=== PATIENT | female | born 1980 | race Caucasian/White ===

== ENCOUNTER 2017-02-11 16:01 | Emergency (ER) | payer BC ==
[2017-02-11 16:19] VITALS: BP 153/90
--- NOTE | 2017-02-11 16:43 | ED ---
Respiratory - History of Current Complaint Chief Complaint: UCRespiratory Stated Complaint: DIZZINESSM CHEST TIGHTNESS Time Seen by Provider: 02/11/17 16:19 - Allergy/Home Medications Allergies/Adverse Reactions: Allergies Allergy/AdvReac Type Severity Reaction Status Date / Time Ciprofloxacin [From Cipro] Allergy Intermediate Rash Verified 02/11/17 16:19 Doxycycline Allergy Mild Rash Verified 02/11/17 16:19 Home Medications: Home Medications Bupropion XL (NF) [Wellbutrin XL (NF)] 300 mg PO DAILY 02/11/17 [History Confirmed 02/11/17] PMH/Surg Hx/FS Hx/Imm Hx Endocrine/Hematology History: Denies: Hx Diabetes, Hx Thyroid Disease Cardiovascular History: Denies: Hx Congestive Heart Failure, Hx Deep Vein Thrombosis, Hx Hypertension , Hx Myocardial Infarction, Hx Pacemaker/ICD Respiratory History: Denies: Hx Asthma, Hx Chronic Obstructive Pulmonary Disease (COPD), Hx Lung Cancer, Hx Pneumonia, Hx Pulmonary Embolism GI History: Denies: Hx Gall Bladder Disease, Hx Gastrointestinal Bleed, Hx Ulcer, Hx Urosepsis History: Denies: Hx Kidney Stones, Hx Renal Disease Neurological History: Denies: Hx Dementia, Hx Migraine, Hx Seizures, Hx Transient Ischemic Attacks (TIA) Psychiatric History: Denies: Hx Anxiety, Hx Depression, Hx Schizophrenia, Hx Bipolar Disorder - Surgical History Surgery Procedure, Year, and Place: WISDOM TEETH Infectious Disease History: No Infectious Disease History: Denies: Hx Clostridium Difficile, Hx Hepatitis, Hx Human Immunodeficiency Virus (HIV), Hx Shingles, Hx Tuberculosis, Hx Known/Suspected VRE, Hx Known/ Suspected VRSA, History Other Infectious Disease, Traveled Outside the [place] in Last 30 Days - Family History Known Family History: Positive: Cardiac Disease, Hypertension, Diabetes - Social History Alcohol Use: Occasionally Substance Use Type: Reports: None Smoking Status (MU): Never Smoked Tobacco Review of Systems Constitutional: Other - DIZZINESS Eyes: Negative ENT: Negative Positive: Chest Pain Respiratory: Negative Genitourinary: Negative Musculoskeletal: Negative Skin: Negative Neurological: Negative Positive: Anxious All Other Systems Reviewed And Are Negative: Yes Physical Exam Vital Signs On Initial Exam: Initial Vitals Pulse Resp BP Pulse Ox 66 20 153/90 100 02/11/17 16:14 02/11/17 16:14 02/11/17 16:14 02/11/17 16:14 Diagnostics - Vital Signs Vital Signs Pulse Resp BP Pulse Ox 02/11/17 16:14 66 20 153/90 100 - Laboratory Lab Statement: Any lab studies that have been ordered have been reviewed, and results considered in the medical decision making process. Disposition - Course Course Of Treatment: DISCUSSED WITH POISON CONTROL. THEY STATED THE EXPOSURE WAS BRIEF AND ANY CYANIDE SX SHOULD BE ALREADY PAST AND ONLY IRRITANT EFFECTS SHOULD BE PRESENT. THIS WAS DISCUSSED WITH PATIENT. ALSO DISCUSSED FURTHER EVALUATION FOR THE DIZZINESS AND CHEST TIGHTNESS HERE IN THE CLINIC OR IN THE EMERGENCY DEPARTMENT. PATIENT FEELS THESE SX ARE DUE TO ANXIETY AND DECLINES FURTHER EVALUATION AT THIS TIME. - Diagnoses Provider Diagnoses: Exposure to chemical inhalation, Dizziness, Chest tightness Discharge - Discharge Plan Condition: Stable Disposition: HOME Patient Education Materials: Dizziness (ED), Chest Pain (ED) Referrals: No Primary Care Phys,NOPCP [Medical Doctor] - [facility] [facility] [Outside] Additional Instructions: FOLLOW UP WITH YOUR DOCTOR FOR YOUR DIZZINESS, CHEST TIGHTNESS AND CHEMICAL INHALATION EXPOSURE. GO TO THE EMERGENCY DEPARTMENT FOR ANY WORSENING OF YOUR CONDITION OR QUESTIONS OR CONCERNS.
== END 2017-02-11 16:51 | disposition home or self-care (01) ==
LOC: UCEAST 16:01
DX: T59.91XA Toxic effect of unspecified gases, fumes and vapors, accidental (unintentional), initial encounter (principal); R42 Dizziness and giddiness; R07.89 Other chest pain; Y92.89 Other specified places as the place of occurrence of the external cause; Z88.1 Allergy status to other antibiotic agents
CPT/HCPCS: 93005; 99211; G0463